=== PATIENT | male | born 1955 | race African-American/Black ===

== ENCOUNTER → 2019-01-20 | Outpatient (CLI) | payer OTHER ==
[~2019-01-20] MED LIST: IOPAMIDOL 370 MG/ML 200 ML INFUS..BTL INJ ONE
[2019-01-20 16:37] LABS: BLOOD UREA NITROGEN 13 mg/dL (7-26); BUN/CREATININE RATIO 15 (6-25); CREATININE, SERUM 0.87 mg/dL (0.72-1.25); EST GLOMERULAR FILTRATION RATE > 60 ML/MIN (60-)
--- NOTE | 2019-01-20 20:38 | Diagnostic Imaging Report ---
EXAM: CT Chest WITH contrast 01/20/2019 3:47 PM INDICATION: ^[id number] ^[id number] ^SARCOIDOSIS COMPARISON: None. TECHNIQUE: Chest was scanned utilizing a multidetector helical scanner from the lung apex through the level of the adrenal glands after administration of IV contrast. Coronal and sagittal reformations were obtained. IV CONTRAST: 100 mL Omnipaque 300 ORAL CONTRAST: None COMPLICATIONS: None RADIATION DOSE: Total DLP: 569.7 mGy*cm Estimated effective dose: (DLP x 0.015 x size factor) mSv CTDIvol has been reviewed. It is below the limits set by the Radiation Protocol Committee (RPC). FINDINGS: LINES/ TUBES: None. LUNGS AND AIRWAYS: Increased AP diameter of the chest. Extensive bilateral lower lobe predominant traction and varicose bronchiectasis with associated peribronchial wall thickening, diffuse inter and intralobular septal thickening, architectural distortion and multifocal areas of perilymphatic 2 to 5 mm pulmonary nodules, for example in the left lower lobe on series 3, image 68. Mild nodular thickening of the lower trachea, for example on series 3, image 45 may relate to sarcoid involvement. There is no airway stenosis. PLEURA: The pleural spaces are clear. HEART AND MEDIASTINUM: The thyroid gland is normal. Multiple mediastinal noncalcified lymphadenopathy with the largest lymph node measuring 1.6 cm in transverse diameter in the subcarinal region on series 2, image 59. There are few, left greater than right calcified and noncalcified subcentimeter lymph nodes. No lymphadenopathy in the axilla. The heart is normal in size. There is no pericardial effusion. The thoracic aorta and pulmonary arteries are unremarkable. UPPER ABDOMEN: Cholelithiasis. BONES: The visualized bony thorax is within normal limits. SOFT TISSUES: Unremarkable. 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 Signed by: Dr. Chela Mistry M.D. on 01/20/2019 8:35 PM
== END ==
LOC: CT 15:39
PROVIDERS: ATTEND Internal Medicine Critical Care Medicine
DX: D86.9 Sarcoidosis, unspecified (principal)
CPT/HCPCS: 36415; 71260; 82565; 84520; Q9967